=== PATIENT | female | born 1975 | race African-American/Black ===

== ENCOUNTER 2016-09-02 13:08 | Emergency (ER) | payer OTHER ==
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
[2016-09-02 17:18] LABS: URINE SOURCE CATH
[2016-09-02 17:23] LABS: URINE APPEARANCE CLEAR; URINE BILIRUBIN NEG (NEG); URINE BLOOD NEG (NEG); URINE COLOR DK YELLOW; URINE GLUCOSE NEG (NEG); URINE KETONE TRACE (NEG); URINE LEUKOCYTE ESTERASE 2+ (NEG); URINE NITRATE NEG (NEG); URINE PH 5.5 (5-8); URINE PROTEIN TRACE (NEG); URINE SPECIFIC GRAVITY 1.034 (1.003-1.035)
[2016-09-02 17:25] LABS: CULTURE INDICATED? YES; URBCS1 AUWI 0-2 /[HPF] (0-2); URINE BACTERIA AUWI NEG (NEGATIVE); URINE SQUAMOUS EPITHELIAL CELL OCC /[HPF]; UWBCS1 AUWI 25-50 (0-5)
[2016-09-05 23:47] LABS: CHLAMYDIA TRACH Not Detected (Not Detected); N GONOR Not Detected (Not Detected)
== END 2016-09-02 18:00 | disposition home or self-care (01) ==
LOC: CFTX 13:08 → CED 13:08 → CFTX 16:35
PROVIDERS: Nurse Practitioner
DX: N30.00 Acute cystitis without hematuria (principal); S20.219A Contusion of unspecified front wall of thorax, initial encounter; F17.210 Nicotine dependence, cigarettes, uncomplicated; X58.XXXA Exposure to other specified factors, initial encounter
CPT/HCPCS: 36415; 71020; 81003; 87086; 87491; 87591; 87808; 87905; 99283